=== PATIENT | female | born 1975 | race Caucasian/White ===

== ENCOUNTER → 2024-05-18 13:53 | Outpatient (REF) | payer OTHER, SELFPAY | LOC: WDC 13:53 | PROVIDERS: ATTENDING PHYSICIAN Obstetrics & Gynecology Gynecology; FAMILY PHYSICIAN Physician Assistant Medical | DX: Z12.31 Encounter for screening mammogram for malignant neoplasm of breast (principal) | CPT/HCPCS: 77063; 77067 ==

== ENCOUNTER → 2024-11-24 09:29 | Outpatient (REF) | payer SELFPAY | LOC: RAD 09:29 | PROVIDERS: ATTENDING PHYSICIAN Physician Assistant Medical | DX: Z13.6 Encounter for screening for cardiovascular disorders (principal) | CPT/HCPCS: 75571 ==

== ENCOUNTER → 2024-12-10 11:03 | Outpatient (REF) | payer SELFPAY | LOC: RAD 11:03 | PROVIDERS: ATTENDING PHYSICIAN Physician Assistant Medical; FAMILY PHYSICIAN Family Medicine | DX: K76.89 Other specified diseases of liver (principal) | CPT/HCPCS: 74160; Q9967 ==

== ENCOUNTER → 2025-05-21 12:58 | Outpatient (REF) | payer SELFPAY | LOC: WDC 12:58 | PROVIDERS: ATTENDING PHYSICIAN Obstetrics & Gynecology Gynecology; FAMILY PHYSICIAN Physician Assistant Medical | DX: Z12.31 Encounter for screening mammogram for malignant neoplasm of breast (principal) | CPT/HCPCS: 77063; 77067 ==